=== PATIENT | male | born 1970 | race Caucasian/White ===

== ENCOUNTER → 2024-04-03 08:34 | Outpatient (REF) | payer OTHER, SELFPAY ==
[2024-04-03 09:35] LABS: % Basophils 0.6 % (0-2); % Eosinophils 2.6 % (0-6); % Immature Granulocytes 0.4 % (0-0.5); % Lymphocytes 44.9 % (20.5-51.1); % Monocytes 7.8 % (1.7-9.3); % Neutrophils 43.7 % (42.2-75.2); Absolute Eosinophils 0.2 10^3/uL (0-0.7); Absolute Lymphocytes 3.2 10^3/uL (1.2-3.4); Absolute Monocytes 0.6 10^3/uL (0.1-0.6); Absolute Neutrophils 3.1 10^3/uL (1.4-6.5); Hematocrit 39.5 % (39.0-52.0); Hemoglobin 14.3 g/dL (13.0-18.0); Mean Corp Hgb Conc. 36.2 g/dL (33.0-37.0); Mean Corpuscular Hgb 28.8 pg (27.0-31.0); Mean Corpuscular Volume 79.6 fL (80.0-94.0); Nucleated Red Blood Cells % 0 % (-); Platelet Count 266 10^3/uL (130-400); Red Blood Cell Count 4.96 10^6/uL (4.70-6.10); Red Cell Dist. Width 12.7 % (11.5-14.5); White Blood Cell Count 7.2 10^3/uL (4.8-10.8)
[2024-04-03 10:06] LABS: Blood Urea Nitrogen 14 mg/dl (9-20); Calcium 9.8 mg/dl (8.4-10.2); Carbon Dioxide 28 mmol/L (22-30); Chloride 104 mmol/L (98-107); Glucose 93 mg/dl (70-99); Potassium 4.4 mmol/L (3.5-5.1); Sodium 142 mmol/L (135-145); eGFR > 60.00
== END ==
LOC: REG 08:34
PROVIDERS: ATTENDING PHYSICIAN Specialist; FAMILY PHYSICIAN Family Medicine
DX: Z01.818 Encounter for other preprocedural examination (principal)
CPT/HCPCS: 36415; 80048; 85025; 93005

== ENCOUNTER 2024-11-22 17:26 | Emergency (ER) | payer BC, SELFPAY ==
[2024-11-22 17:33] VITALS: BP 124/66
--- NOTE | 2024-11-22 20:05 | ED.GENMED ---
History of Present Illness
General
Chief Complaint: DVT/Possible Blood Clot
Time Seen by Provider: 11/22/24 19:36
History of Present Illness
History of Present Illness:
54-year-old male with history of arthritis presenting for evaluation of right lower extremity. Patient is status post right hip replacement about a week ago by Dr. Lerma. Denies any significant postoperative issues. However, 2 days ago started
to have some swelling to the right knee, was concerned that it was warm. He called his orthopedic doctor who advised to come to the hospital for rule out blood clot. Yesterday patient notes that he had some tingling to his right mcmullen which is
since resolved. Denies fever. Has been walking, ambulating with a walker. Notes some mild oozing to the hip wound. Denies any pain to the knee with bending or ambulation. Denies any history of blood clots. He has been on aspirin since surgery.
Denies additional acute medical complaints
Past History
Past History
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
ED Past Surgical History: Other (Pituitary adenoma resection and gamma knife radiation 2007)
Social History
Tobacco: Non-smoker
Alcohol: Occasional
Personal:
Living: with family
Employment: Employed
Family History
Family History: Negative Early CAD or CAD
Phy Exam
Physical Exam
Physical Exam:
General: Well-appearing, no clinical signs of dehydration, nontoxic and in no acute distress
HEENT: protecting airway
Neck: appears supple
CV: Normal heart rate
Resp: No accessory muscle use, no increased work of breathing
Abd: no distension
Extremities: No significant swelling to the right lower extremity. Mild suprapatellar area swelling. No warm or erythema to the right lower extremity or knee. Range of motion of the knee is intact without pain on range of motion testing. Distal
sensation and pulses intact. Incision to the lateral right hip is clean/dry/intact without erythema or purulent drainage.
Neuro: alert, no focal neurologic deficit
: deferred
Rectal: deferred
Psych: Normal affect
Skin: Intact
Course
Orders/Labs/Results
Orders:
Orders
11/22/24 17:27
Periph Venous Lwr Ext Rt US [US Periph Venous LOWER Ext RT] Urgent
Comment: s/p hip replacement
Reason For Exam: swelling, pain
Vital Signs
Initial and Last Documented VS:
Initial Vital Signs
Temp Pulse Resp BP Pulse Ox
98.2 F 88 18 124/66 97
11/22/24 17:33 11/22/24 17:33 11/22/24 17:33 11/22/24 17:33 11/22/24 17:33
Last Documented Vital Signs
Temp Pulse Resp BP Pulse Ox
98.2 F 88 18 124/66 97
11/22/24 17:33 11/22/24 17:33 11/22/24 17:33 11/22/24 17:33 11/22/24 19:39
MDM/Problems Addressed
MDM/Problems Addressed:
54-year-old male status post right hip replacement presenting for concern for right leg swelling. Vital signs are normal.
On exam patient is resting comfortably, no acute distress. Patient had ultrasound imaging of the right lower extremity prior to my assessment, no DVT. On my assessment, no significant swelling or erythema. No infectious findings. No
neurovascular compromise. Range of motion to the knee is intact without pain on range of motion testing. Without present concern for septic arthritis. Incision to the right hip appears to be healing appropriately. Without any present infectious
findings. At this time suspect some mild postoperative swelling. Patient has a follow-up appoint with his orthopedic doctor in a week. Feel stable for discharge. Encouraged continued ambulation and elevation when sitting. Strict return
precautions communicated and patient verbalized understanding
*Critical Care Note
Total Time (30-74mins, 75-104mins- exclusive of procedures): Not Applicable
ED Attending Note
-
Portions of this chart may have been created with voice recognition software.� Occasional wrong word or��sound alike� substitutions may have occurred due to the inherent limitations of voice recognition software.
Discharge Plan
Departure
Prescriptions:
No Action
cabergoline 0.5 MG tablet
0.5 mg PO Q48H
levothyroxine 200 MCG tablet
200 mcg PO DAILY
hydrocortisone 20 MG tablet
20 mg PO DAILY
hydrocortisone 10 MG tablet
10 mg PO QPM
cyclobenzaprine 10 MG tablet
10 mg PO TIDPRN PRN (Reason: spasm) Qty: 15 0RF
Interventions
Interventions:
*Risk Screen - Suicide Last Done: 11/22/24 17:33
*General Assessment Last Done: 11/22/24 17:33
*ED COVID-19 Vaccine History Last Done: 11/22/24 17:33
ED- Cardiac Assessment Last Done: 11/22/24 19:39
ED- Pulmonary Assessment Last Done: 11/22/24 19:39
ED-Peripheral Vascular Assessment Last Done: 11/22/24 19:39
ED-Skin Assessment Last Done: 11/22/24 19:39
Discharge Date and Time
Print Language: MACANESE
== END 2024-11-22 20:38 | disposition home or self-care (01) ==
LOC: EMR 17:26
PROVIDERS: EMERGENCY PHYSICIAN Student in an Organized Health Care Education/Training Program; FAMILY PHYSICIAN Family Medicine
DX: R22.41 Localized swelling, mass and lump, right lower limb (principal); E03.9 Hypothyroidism, unspecified; E27.40 Unspecified adrenocortical insufficiency; Z79.899 Other long term (current) drug therapy; Z96.641 Presence of right artificial hip joint
CPT/HCPCS: 99284; 93971